=== PATIENT | female | born 1980 | race Caucasian/White ===

== ENCOUNTER 2025-06-17 06:29 | Day surgery (SDC) | payer BC, SELFPAY ==
[2025-06-17] VITALS (10 sets, daily range): BP systolic 97–115; BP diastolic 72–85; BMI 23.0
[2025-06-17] MEDS: NORMOSOL-R/PLASMALYTE-A 1000 IV (12:01)
== END 2025-06-17 15:22 | disposition home or self-care (01) ==
LOC: SDS 06:29
PROVIDERS: ATTENDING PHYSICIAN Obstetrics & Gynecology
DX: N84.0 Polyp of corpus uteri (principal); N92.0 Excessive and frequent menstruation with regular cycle
CPT/HCPCS: 58558; 88305

== ENCOUNTER 2025-09-08 07:10 | Day surgery (SDC) | payer BC, SELFPAY ==
[2025-07-31 09:27] LABS: INR 1.03; PT 13.8 Sec (11.4-14.6)
[2025-07-31 09:42] LABS: ALT (SGPT) 21 U/L (0-35); AST (SGOT) 24 U/L (14-36); Albumin 3.8 g/dl (3.5-5.0); Alkaline Phosphatase 61 U/L (38-126); Blood Urea Nitrogen 10 mg/dl (7-17); Calcium 9.2 mg/dl (8.4-10.2); Carbon Dioxide 23 mmol/L (22-30); Chloride 107 mmol/L (98-107); Glucose 79 mg/dl (70-99); Potassium 4.4 mmol/L (3.5-5.1); Sodium 133 mmol/L (135-145); Total Protein 6.3 g/dl (6.3-8.2); eGFR > 60.00
[2025-07-31 09:55] LABS: Beta HCG Quantitative < 2.39 mIU/ml
[2025-07-31 09:57] LABS: Hematocrit 21.8 % (37.0-47.0); Hemoglobin 6.9 g/dL (12.0-16.0); Mean Corp Hgb Conc. 31.7 g/dL (33.0-37.0); Mean Corpuscular Volume 92.0 fL (81.0-99.0); Platelet Count 270 10^3/uL (130-400); Red Cell Dist. Width 14.2 % (11.5-14.5)
[2025-07-31 12:49] LABS: Nucleated Red Blood Cells % 0 %
[2025-07-31 14:04] VITALS: BMI 23.3
[2025-09-01 08:56] LABS: INR 1.08; PT 14.1 Sec (11.4-14.6)
[2025-09-01 09:01] LABS: Hematocrit 28.5 % (37.0-47.0); Hemoglobin 9.0 g/dL (12.0-16.0); Mean Corp Hgb Conc. 31.6 g/dL (33.0-37.0); Mean Corpuscular Volume 91.9 fL (81.0-99.0); Nucleated Red Blood Cells % 0 %; Platelet Count 318 10^3/uL (130-400); Red Cell Dist. Width 15.7 % (11.5-14.5)
[2025-09-01 09:13] LABS: Beta HCG Quantitative < 2.39 mIU/ml
--- NOTE | 2025-09-01 09:37 | PTCARENOTE ---
Patients 09/01 WBC- 2.8- Anisha @ Dr. Su office notified
[2025-09-01 09:53] LABS: ALT (SGPT) 19 U/L (0-35); AST (SGOT) 23 U/L (14-36); Albumin 4.0 g/dl (3.5-5.0); Alkaline Phosphatase 54 U/L (38-126); Blood Urea Nitrogen 11 mg/dl (7-17); Calcium 9.3 mg/dl (8.4-10.2); Carbon Dioxide 25 mmol/L (22-30); Chloride 105 mmol/L (98-107); Estimated Creatinine Clearance 111 ml/min; Glucose 80 mg/dl (70-99); Potassium 4.9 mmol/L (3.5-5.1); Sodium 135 mmol/L (135-145); Total Protein 6.5 g/dl (6.3-8.2); eGFR > 60.00
[2025-09-01 14:35] VITALS: BMI 24.0
[2025-09-08] VITALS (12 sets, daily range): BP systolic 108–134; BP diastolic 71–87; BMI 24.0
[2025-09-08] MEDS: NEURONTIN 300 MG PO (07:57)
[2025-09-08 08:20] LABS: Hematocrit 32.5 % (37.0-47.0); Hemoglobin 10.7 g/dL (12.0-16.0); Mean Corp Hgb Conc. 32.9 g/dL (33.0-37.0); Mean Corpuscular Volume 89.5 fL (81.0-99.0); Platelet Count 255 10^3/uL (130-400); Red Cell Dist. Width 13.3 % (11.5-14.5)
--- NOTE | 2025-09-08 09:06 | OR.RPT ---
Operative Report
Operative Report
Intra-operative consult note
DOS: 09/08/25
Surgeon: Angie
Pre-op Diagnosis: Menorrhagia, uterine fibroids
Procedure: Robotic total laparoscopic hysterectomy with bilateral salpingectomy
Indications for consult: History of liver transplant
Operative details: After patient was prepped and draped in the usual sterile fashion, a time out was performed verifying the patient name, date of and scheduled procedure. A transverse incision was made in the supraumbilical area with a #11
blade. S-retractors were used to bluntly dissect to the fascia. The fascia was grasped with kochers and elevated, and incised with the #11 blade. The s-retractors were passed through the fascial incision and the incision was explored. Minor bleeding
was controlled with direct pressure and exposure was aided by suction. 0 vicryl stay sutures were placed on the fascia and the kochers were removed. The posterior sheath was visualized. It was grasped with hemostats and elevated, and incised with
metzenbaum xiang. Entry into the abdominal cavity was visually confirmed and an s-retractor was passed into the cavity. An 8mm robotic trocar with blunt obturator was passed into the abdomen and secured with penetrating towel clips. The abdomen was
insufflated. Visual inspection confirmed no injuries to the viscera during entry. The remainder of the procedure was performed by Dr. Adams and dictated separately.
--- NOTE | 2025-09-08 11:28 | W.IMMPOSTOP ---
Addendum entered and electronically signed by Mame Adams DO 09/08/25 11:39:
Correction to prior note:
Dr. Bello was Intraoperative consult (not technical assistant)
Urine output 1000ml clear yellow urine.
Original Note:
Surgical Immed Post Op Note
-
Primary Surgeon: Garret Adams DO
Assisting Surgeon: Dr. Amadeo Bello General Surgery for entry into abdominal cavity due to prior history liver transplant
Pre-op Diagnosis: Severe menorrhagia, fibroid uterus, severe anemia, history of liver transplant
Post-op Diagnosis: same
Procedure Performed: Robotic total laparoscopic hysterectomy, bilateral salpingectomy, lysis adhesions
Anesthesia Type: general ET Dr. Parker
Specimen / Cultures: uterus, cervix, bilateral fallopian tubes
Estimated Blood Loss: 10ml
Complications: none
Operative Findings: Enlarged fibroid uterus approx 12 cm size. Fallopian tubes c/w prior hx of partial salpingectomy. Normal appearing cervix and bilateral ovaries.
Adhesions noted in region of [place]ANC[place] involving bladder.
Counts correct times 2.
Stable to recovery.
[2025-09-08] MEDS: DILAUDID 0.5 MG IV ×2 (11:39→12:13)
[2025-09-08] MEDS: ZOFRAN 4 MG IV (13:44)
[2025-09-08] MEDS: ROXICODONE 5 MG PO (14:10)
[2025-09-08] MEDS: TYLENOL 1000 MG PO (15:02)
--- NOTE | 2025-09-08 15:26 | PTCARENOTE ---
Conversation with anesthesia, patient, and after second episode of vomiting. patient feeling better and eager to go home, will re-dose tylenol and patient will use prescribed oxycodone for pain at home.
== END 2025-09-08 15:12 | disposition home or self-care (01) ==
LOC: SDS 07:10
PROVIDERS: ATTENDING PHYSICIAN Obstetrics & Gynecology
DX: D25.9 Leiomyoma of uterus, unspecified (principal); N80.03 Adenomyosis of the uterus; N83.8 Other noninflammatory disorders of ovary, fallopian tube and broad ligament; N92.0 Excessive and frequent menstruation with regular cycle; Z94.4 Liver transplant status
CPT/HCPCS: 58571; 80053; 84702; 85025; 85027; 85610; 86850; 86900; 86901; 86920; 88307